=== PATIENT | female | born 1965 | race Hispanic/Latino ===

== ENCOUNTER 2019-06-01 06:05 | Emergency (ER) | payer SELFPAY ==
[2019-06-01] MEDS ORDERED: HYDROCODONE/APAP 5/325 MG TAB ONE (06:34)
[2019-06-01] MEDS ORDERED: TETANUS & DIPHTHERIA TOX,ADULT 0.5 ML VIAL ONE (06:35)
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
[2019-06-01 08:29] VITALS: BP 132/67; TEMP 97.4; O2SAT 98
--- NOTE | 2019-06-01 08:45 | RAD REPORT ---
EXAM DESCRIPTION: RAD - Foot Right 3 View - 06/01/2019 7:10 am CLINICAL HISTORY: Right foot pain and swelling, patient localizes pain to the first toe COMPARISON: None. FINDINGS: No fracture, dislocation or periosteal reaction. No acute or destructive bone process. Ext ension of the toes creates positioning that limits evaluation of the second- fifth proximal phalanges . Noted bone destructive changes of the first toe or elsewhere. No air or foreign body in the soft tissues. Spurring is present at the Achilles attachment. IMPRESSION: Negative right foot examination for acute or destructive finding.
== END 2019-06-01 08:17 | disposition home or self-care (01) ==
LOC: ER 06:05
DX: S90.861A Insect bite (nonvenomous), right foot, initial encounter (principal)
CPT/HCPCS: 90471; 90714; 99284